=== PATIENT | female | born 1980 | race African-American/Black ===

== ENCOUNTER 2019-07-10 16:46 | Emergency (ER) | payer SELFPAY ==
[~2019-07-10] VITALS: Ht 165.1 cm; Wt 65.8 kg
[2019-07-10 16:55] VITALS: BP 152/74
[2019-07-10] MEDS ORDERED: CEPH-264 PO (17:24)
--- NOTE | 2019-07-10 17:25 | PHYS DOC ---
Past Medical History Past Medical History: No Pertinent History Past Surgical History: No Surgical History Alcohol Use: Occasionally Drug Use: Marijuana Adult General Chief Complaint Chief Complaint: LACERATION/AVULSION HPI HPI Patient is a 38 year old female who presents with laceration to the left first digit. The patient states that she was washing dishes and cut her thumb on a plate. She states this happened 30 minutes prior to arrival. Denies any other complaints. Complete ROS were reviewed and found to be within normal limits, except as documented in the HPI Current Medications Current Medications Current Medications Medications (Trade) Dose Ordered Sig/Caroline Start Time Stop Time Status Last Admin Dose Admin Acetaminophen (Tylenol) 500 mg 1X ONCE 07/10/19 17:30 07/10/19 17:31 DC 07/10/19 17:34 500 MG Diphtheria/ Tetanus/Acell Pertussis (Boostrix) 0.5 ml ONCE ONCE 07/10/19 18:45 07/10/19 18:46 Lidocaine HCl 20 ml 1X ONCE 07/10/19 17:30 07/10/19 17:31 DC 07/10/19 17:35 20 ML Neomycin/ Polymyxin/ Bacitracin (Triple Antibiotic Ointment) 1 pkt 1X STAT 07/10/19 18:31 07/10/19 18:34 DC Allergies Allergies Allergies Coded Allergies Type Severity Reaction Last Updated Verified No Known Drug Allergies 07/10/19 No Physical Exam Physical Exam Constitutional: Well developed, well nourished, no acute distress, non-toxic appearance. [] HENT: Normocephalic, atraumatic, bilateral external ears normal, oropharynx moist, no oral exudates, nose normal. [] Eyes: PERRLA, EOMI, conjunctiva normal, no discharge. [] Neck: Normal range of motion, no tenderness, supple Skin: laceration to L 1st digit, 2 cm, distal, tendons are intact, patient has loss of sensation to distal tip of thumb. Back: No tenderness, no CVA tenderness. [] Extremities: No tenderness, no cyanosis, no clubbing, ROM intact, no edema. [] Neurologic: Alert and oriented X 3, normal motor function, normal sensory function, no focal deficits noted. [] Psychologic: Affect normal, judgement normal, mood normal. [] Current Patient Data Vital Signs Vital Signs Date Time Temp Pulse Resp B/P (MAP) Pulse Ox O2 Delivery O2 Flow Rate FiO2 1/13/20 16:55 97.8 106 12 152/74 (100) 95 Room Air 97.8 EKG EKG [] Radiology/Procedures Radiology/Procedures Indication: L 1st digit laceration Procedure: The patient was placed in the appropriate position and anesthesia around the digital block with 2% lidocaine, 1.5 mL. The area was then cleansed with 210 mL of saline. The laceration was closed with 11, 4-0 nylon sutures. The wound area was then dressed with dressing and neosproin. Total repaired wound length: 2 cm. The patient tolerated the procedure. Complications: None. [facility] [address] [place] [address] IMAGING REPORT Signed PATIENT: FERMIN SYLVESTER ACCOUNT: [id number] : 1980 LOCATION: ER AGE: 38 SEX: F EXAM STATUS: REG ER ORD. PHYSICIAN: MIQUEL TUCKER APRN REASON: 1st digit laceration PROCEDURE: HAND LEFT 3V Study: HAND LEFT 3V Indication: First digit laceration. Comparison: None. Findings: Sequela of laceration injury to the thumb with overlying bandaging material. No retained radiopaque foreign body seen. No associated osseous abnormality. Impression: Findings of laceration injury to the first digit without retained radiopaque foreign body or acute osseous abnormality. Electronically signed by: MORGAN BUENROSTRO MD (07/10/2019 6:04 PM) [id number] DICTATED and SIGNED BY: MORGAN BUENROSTRO MD DATE: 07/10/191803 Course & Med Decision Making Course & Med Decision Making Pertinent Labs and Imaging studies reviewed. (See chart for details) Will get imaging and then will suture wound. Will perform a digital block. Wound was sutured, discussed with patient following up with Hand Surgeon. [place] Disclaimer Dragon Disclaimer This electronic medical record was generated, in whole or in part, using a voice recognition dictation system. Departure Departure Impression: Primary Impression: Laceration Disposition: HOME, SELF-CARE Condition: STABLE Patient Instructions: Laceration Care, Adult Additional Instructions: Thank you for visiting [facility]. We appreciate you trusting us with your care. If any additional problems come up don't hesitate to return to visit us. Please follow up with your primary care provider so they can plan additional care if needed and know about the problem that you had. If symptoms worsen come back to the Emergency Department. Any concerning symptoms that start such as chest pain, shortness of air, weakness or numbness on one side of the body, running high fevers or any other concerning symptoms return to the ER. Please keep your wound dry, especially for the first 24 hours. After the first 24 hours you can wet the wound for a short time. Do not soak the wound or swim until the sutures have been removed. Please have the sutures removed in 7-10 days by your primary care doctor or return to ER for removal. Please keep the wound clean and change your bandage at least twice per day. You can use Neosporin on the wound to help reduce the chance of infection. If you notice signs of infection such as drainage from the wound (Pus), redness, increased pain or swelling return to ER for treatment. You have been prescribed an antibiotic today to help fight your infection. Please take all of the antibiotic as directed. If after 48 hours the infection is not improving, please return for more care. If the infection worsens, return to ER for additional care. Please follow up with hand surgeon for numbness in finger. Scripts Cephalexin (KEFLEX) 500 Mg Capsule 1 CAP PO QID for 5 Days, #20 CAP 0 Refills Prov: MIQUEL TUCKER APRN 07/10/19 MIQUEL TUCKER APRN Jul 10, 2019 17:25
[2019-07-10] MEDS ORDERED: ACETAMINOPHEN 500 MG TABLET PO ONE (17:30)
[2019-07-10] MEDS ORDERED: LIDOCAINE 2% 20 ML VIAL. IJ ONE (17:30)
--- NOTE | 2019-07-10 18:08 | RAD ---
Study: HAND LEFT 3V Indication: First digit laceration. Comparison: None. Findings: Sequela of laceration injury to the thumb with overlying bandaging material. No retained radiopaque foreign body seen. No associated osseous abnormality. Impression: Findings of laceration injury to the first digit without retained radiopaque foreign body or acute osseous abnormality. Electronically signed by: MORGAN BUENROSTRO MD (07/10/2019 6:04 PM) [id number]
[2019-07-10] MEDS ORDERED: NEOMY/BACITR/POLYMYXIN OINT PACKET. TP STA (18:31)
[2019-07-10] MEDS ORDERED: DIPHTH,PERTUSS(ACELL),TET TOX 0.5 ML DISP.SYRIN. VAX IM ONE (18:45)
== END 2019-07-10 18:47 | disposition home or self-care (01) ==
LOC: ER 16:46
DX: S61.211A Laceration without foreign body of left index finger without damage to nail, initial encounter (principal); F12.90 Cannabis use, unspecified, uncomplicated; W26.8XXA Contact with other sharp object(s), not elsewhere classified, initial encounter; Y93.89 Activity, other specified; Y92.89 Other specified places as the place of occurrence of the external cause; Y99.8 Other external cause status
CPT/HCPCS: 12001; 73130; 90471; 90715; 99284; J2001